=== PATIENT | female | born 1965 | race Caucasian/White ===

== ENCOUNTER 2021-01-13 06:33 | Emergency (ER) | payer OTHER ==
[~2021-01-13 06:33] MED LIST: ASPIRIN EC81 MG PO; CARDIZEM CD240 MG PO; CELEBREX **OUT100 MG PO; EFFEXOR XR150 MG PO; MOBIC7.5 MG PO; NEURONTIN300 MG PO; PREDNISONE 20MG20 MG PO; VENTOLIN HFA IN18 GM INH
[2021-01-13 07:10] LABS: EOSINOPHIL 2.7 % (0-5); HCT 40.7 % (37.0-47.0); LYMPHOCYTE 17.4 % (15-48); MCHC 31.9 g/dL (32.0-36.0); MCV 93.8 fL (78.0-100.0); MONOCYTE 11.1 % (0-12); MPV 10.6 fL (6.0-9.5); NEUTROPHIL 67.3 % (41-80); NRBC 0; PLT 315 K/uL (150-400); RBC 4.34 M/uL (4.20-5.40); RDW 13.8 % (11.5-14.0); WBC 13.5 K/uL (4.0-10.5)
[2021-01-13 07:16] LABS: INR 1.04 (0.9-1.2); PTT 32.8 SECONDS (24.4-34.7)
[2021-01-13 07:17] LABS: D-DIMER 0.68 ug/mLFEU (0.00-0.41)
[2021-01-13 07:23] LABS: PRO-BNP 643 pg/mL (<125)
[2021-01-13 07:29] LABS: ALBUMIN 3.7 g/dL (3.4-5.0); BILIRUBIN - TOTAL 0.6 mg/dL (0.2-1.0); BUN/CREAT RATIO (CALC) 26.6 RATIO; CREATININE 0.64 mg/dL (0.51-0.95); FT4 (FREE T4) 0.9 ng/dL (0.76-1.46); GLOBULIN (CALCULATION) 3.7 g/dL; MAGNESIUM 2.3 mg/dL (1.8-2.4); POTASSIUM 4.1 mmol/L (3.5-5.1); TOTAL PROTEIN 7.4 g/dL (6.4-8.2)
[2021-01-13] MEDS ORDERED: HYDROCODON-ACE1 EAC2 PO (09:02)
[2021-01-13] MEDS ORDERED: NAPROXEN500 MG PO (09:02)
[2021-01-13] MEDS ORDERED: ELIQUIS5 M1 PO (09:17)
== END 2021-01-13 10:10 | disposition home or self-care (01) ==
LOC: FER 06:33
PROVIDERS: Emergency Medicine
DX: S22.31XA Fracture of one rib, right side, initial encounter for closed fracture (principal); I48.92 Unspecified atrial flutter; R91.8 Other nonspecific abnormal finding of lung field; J44.9 Chronic obstructive pulmonary disease, unspecified; Z88.2 Allergy status to sulfonamides; X58.XXXA Exposure to other specified factors, initial encounter
CPT/HCPCS: 36415; 71250; 80053; 82550; 83735; 83880; 84439; 84443; 84484; 85025; 85379; 85610; 85730; 93005; J1170; J2405; J2930; J7512